=== PATIENT | male | born 1995 | race Hispanic/Latino ===

== ENCOUNTER 2017-06-18 23:12 | Emergency (ER) | payer SELFPAY ==
[2017-06-19] MEDS ORDERED: TETANUS & DIPHTHERIA TOX,ADULT 0.5 ML VIAL ONE (00:18)
[2017-06-19] MEDS ORDERED: DERMABOND SKIN ADHESIVE TOP ONE (00:24)
--- NOTE | 2017-06-19 00:42 | EDPHYS ---
Physician Documentation [facility] Name: Jamshid Agosto Jr Age: 21 yrs Sex: Male : 1995 Arrival Date: 06/18/2017 Time: 23:18 Bed 20 Private MD: ED Physician Fer Wei HPI: 06/19 00:01 This 21 yrs old Male presents to ER via Ambulatory with complaints of Finger tw4 Injury. 00:01 The patient or guardian reports injury, a laceration, clean, 3 cm(s). The complaints tw4 affect the DIP of right middle finger. Context: The problem was sustained at home, resulted from cut with knife. Onset: The symptoms/episode began/occurred today. Modifying factors: The symptoms are alleviated by nothing, the symptoms are aggravated by nothing. Associated signs and symptoms: The patient has no apparent associated signs or symptoms. The patient has not experienced similar symptoms in the past. Historical: - Allergies: 06/18 23:31 No Known Allergies; ao - Home Meds: 23:31 None [Active]; ao - PMHx: 23:31 None; ao - PSHx: 23:31 None; ao - Immunization history:: Adult Immunizations not up to date, Last tetanus immunization: unknown. - Social history:: Smoking status: Patient/guardian denies using tobacco, Patient/guardian denies using alcohol, street drugs. ROS: 06/19 00:01 Constitutional: Negative for fever, chills, and weight loss. tw4 MS/extremity: Positive for injury or acute deformity, laceration, pain, Negative for abrasion, bite, contusion, deformity, ecchymosis, erythema. Exam: 00:01 Constitutional: This is a well developed, well nourished patient who is awake, alert, tw4 and in no acute distress. Head/Face: Normocephalic, atraumatic. 00:01 Musculoskeletal/extremity: Extremities: noted in the dorsal aspect of middle phalanx of right middle finger: laceration, pain. Vital Signs: 06/18 23:29 BP 147 / 82; Pulse 81; Resp 16; Temp 97.9; Pulse Ox 98% on R/A; Weight 81.65 kg (R); ao Height 5 ft. 7 in. (170.18 cm) (R); Pain 6/10; 23:29 Body Mass Index 28.19 (81.65 kg, 170.18 cm) ao Laceration: 06/19 00:37 Wound Repair of subcutaneous laceration to dorsal aspect of middle phalanx of right tw4 middle finger. Distal neuro/vascular/tendon intact. Skin closed with 1-0 Prolene using Dermabond. Patient tolerated well. 00:37 Wound Repair of 3cm ( 1.2in ) subcutaneous laceration to dorsal aspect of middle tw4 phalanx of right middle finger. Linear shaped.. Distal neuro/vascular/tendon intact. Anesthesia: none with 1% lidocaine. Wound prep: Simple cleansing. Skin closed with 1-0 Prolene using steri strips. Dressed with Kerlix. Patient tolerated well. MDM: 06/18 23:57 Patient medically screened. tw4 06/19 00:04 Data reviewed: vital signs, nurses notes. Counseling: I had a detailed discussion with [facility] the patient and/or guardian regarding: the historical points, exam findings, and any diagnostic results supporting the discharge/admit diagnosis. 00:37 Differential diagnosis: contusion, abrasion. Special discussion: I discussed with the [facility] patient/guardian in detail that at this point there is no indication for admission to the hospital. It is understood, however, that if the symptoms persist or worsen the patient needs to return immediately for re-evaluation. 06/19 00:29 Order name: Dermabond; Complete Time: 00:29 ao 06/19 00:41 Order name: Splint - Finger; Complete Time: 00:42 ao Administered Medications: 00:10 Drug: Tetanus-Diphtheria Toxoid Adult 0.5 ml {Evaporator: [employer]. Exp: ao 10/13/2019. Lot #: [id number]. } Route: IM; Site: right deltoid; 00:28 Follow up: Response: No adverse reaction ao Disposition: 06/19/17 00:42 Discharged to Home. Impression: Laceration of blood vessel of right middle finger. - Condition is Stable. - Discharge Instructions: Non-Sutured Laceration, Laceration Care, Adult, [id number]. - Work release form, Medication Reconciliation Form, Thank You Letter, Antibiotic Education, Prescription Opioid Use form. - Follow up: Private Physician; When: As needed; Reason: Recheck today's complaints, Continuance of care, Re-evaluation by your physician. - Problem is new. - Symptoms are resolved. Signatures: Umberto Medina, VIC RN Fer Rucker MD MD tw4
--- NOTE | 2017-06-19 00:42 | ER ---
Nurse's Notes [facility] Name: Jamshid Agosto Jr Age: 21 yrs Sex: Male : 1995 Arrival Date: 06/18/2017 Time: 23:18 Bed 20 Private MD: Diagnosis: Laceration of blood vessel of right middle finger Presentation: 06/18 23:27 Presenting complaint: Patient states: " I cut my self with a knife." Bleeding has ao stopped. Transition of care: patient was not received from another setting of care. Onset of symptoms was June 18, 2017 at 21:00. Care prior to arrival: None. 23:27 Method Of Arrival: Ambulatory ao 23:27 Acuity: CEDRICK 3 ao Triage Assessment: :31 General: Appears in no apparent distress. uncomfortable, Behavior is calm, cooperative, ao appropriate for age. Pain: Complains of pain in right hand Pain currently is 6 out of 10 on a pain scale. EENT: No signs and/or symptoms were reported regarding the EENT system. Neuro: Level of Consciousness is awake, alert, obeys commands, Oriented to person, place, time, situation, Appropriate for age Moves all extremities. Speech is normal, Facial symmetry appears normal, Pupils are PERRLA. Cardiovascular: Patient's skin is warm and dry. Respiratory: Airway is patent Respiratory effort is even, unlabored, Respiratory pattern is regular, symmetrical. GI: Abdomen is non-distended. : No signs and/or symptoms were reported regarding the genitourinary system. Derm: Wound noted dorsal aspect of middle phalanx of right middle finger Wound is bleeding controlled. Musculoskeletal: Range of motion: intact in all extremities. Injury Description: Laceration sustained to dorsal aspect of middle phalanx of right middle finger is 0.5 to 2.5 cm long, Bleeding controlled was sustained 30-60 minutes ago. no active bleeding noted at this time. Historical: - Allergies: : No Known Allergies; ao - Home Meds: : None [Active]; ao - PMHx: : None; ao - PSHx: 23:31 None; ao - Immunization history:: Adult Immunizations not up to date, Last tetanus immunization: unknown. - Social history:: Smoking status: Patient/guardian denies using tobacco, Patient/guardian denies using alcohol, street drugs. Screenin:31 Abuse screen: Denies threats or abuse. Denies injuries from another. Nutritional ao screening: No deficits noted. Tuberculosis screening: No symptoms or risk factors identified. Fall Risk None identified. Assessment: 23:34 General: See triage assessment. ao 06/19 00:08 Reassessment: Clean incision with saline and gauze. ao 00:42 Reassessment: Waiting on discharge orders. ao 00:54 Reassessment: Discharge instructions given to patient and father. Patient understand ao the POC and to follow up with PCP. Patient understand how to care for incision and has no questions. Vital Signs: 06/18 23:29 BP 147 / 82; Pulse 81; Resp 16; Temp 97.9; Pulse Ox 98% on R/A; Weight 81.65 kg (R); ao Height 5 ft. 7 in. (170.18 cm) (R); Pain 6/10; 23:29 Body Mass Index 28.19 (81.65 kg, 170.18 cm) ao ED Course: 23:18 Patient arrived in ED. es 23:27 Umberto Medina, RN is Primary Nurse. ao 23:29 Triage completed. ao 23:30 Arm band placed on right wrist. Patient placed in an exam room, on a stretcher, on ao pulse oximetry. 23:34 Patient has correct armband on for positive identification. Pulse ox on. NIBP on. ao 23:57 Fer Wei MD is Attending Physician. tw4 04 00:53 No provider procedures requiring assistance completed. Patient did not have IV access ao during this emergency room visit. Administered Medications: 00:10 Drug: Tetanus-Diphtheria Toxoid Adult 0.5 ml {Cardiac Monitor: [employer]. Exp: ao 10/13/2019. Lot #: [id number]. } Route: IM; Site: right deltoid; 00:28 Follow up: Response: No adverse reaction ao Outcome: 00:42 Discharge ordered by . tw4 00:54 Discharged to home ambulatory. ao 00:54 Condition: stable 00:54 Discharge instructions given to patient, Instructed on discharge instructions, follow up and referral plans. Demonstrated understanding of instructions, follow-up care, medications. 00:55 Patient left the ED. ao Signatures: Hannah Anthony Alex, RN RN Fer Rucker MD MD tw4 Corrections: (The following items were deleted from the chart) 00:06/18 23:31 Pain: Complains of pain in left hand Pain currently is 6 out of 10 on a ao pain scale. ao 06/19 00:06/18 23:31 Derm: Wound noted dorsal aspect of middle phalanx of left ring finger Wound ao is bleeding controlled ao 06/19 00:06/18 23:31 Injury Description: Laceration sustained to dorsal aspect of middle phalanx ao of left ring finger is 0.5 to 2.5 cm long, Bleeding controlled was sustained 30-60 minutes ago. no active bleeding noted at this time. ao
[2017-06-19 01:03] VITALS: BP 147/82; TEMP 97.9; O2SAT 98
== END 2017-06-19 00:55 | disposition home or self-care (01) ==
LOC: ER 23:12
PROC: 0JQJ0ZZ Repair Right Hand Subcutaneous Tissue and Fascia, Open Approach (ICD-10-PCS; principal; 2017-06-19)
DX: S61.212A Laceration without foreign body of right middle finger without damage to nail, initial encounter (principal); W26.0XXA Contact with knife, initial encounter; Y93.9 Activity, unspecified; Y92.009 Unspecified place in unspecified non-institutional (private) residence as the place of occurrence of the external cause; Z23 Encounter for immunization
CPT/HCPCS: 90714; 99283